=== PATIENT | male | born 1945 | race Caucasian/White ===

== ENCOUNTER 2018-06-24 09:17 | Inpatient (IN) | payer OTHER ==
[~2018-06-24] VITALS: Ht 162.6 cm; Wt 41.6 kg
[2018-06-24] MEDS ORDERED: HYDROmorphone 2 MG/ML, 1ML IM ONE (10:00)
[2018-06-24] MEDS ORDERED: HYDROmorphone 2 MG/ML, 1ML ONE ×2 (10:01→12:44)
[2018-06-24] MEDS ORDERED: MORPHINE SULFATE (10:15)
[2018-06-24] MEDS ORDERED: SODIUM CHLORIDE FLUSH 10ML SYR IVF ONE (11:00)
[2018-06-24 11:24] LABS: BASOPHILS # (AUTO) 0.02 x10^3/uL (0-0.1); BASOPHILS % (AUTO) 0 % (0-1); EOSINOPHILS # (AUTO) 0.03 x10^3/uL (0-0.4); EOSINOPHILS % (AUTO) 0 % (1-7); LYMPHOCYTES # (AUTO) 0.77 x10^3/uL (1-3.4); LYMPHOCYTES % (AUTO) 8 % (22-44); MD NO; MEAN CORPUSCULAR HEMOGLOBIN 35.8 pg (27.5-34.5); MEAN CORPUSCULAR HGB CONC 34.3 g/dL (33.2-36.2); MEAN CORPUSCULAR VOLUME 104.5 fL (81-97); MEAN PLATELET VOLUME 7.2 fL (7.4-10.4); MONOCYTES # (AUTO) 0.53 x10^3/uL (0.2-0.8); MONOCYTES % (AUTO) 6 % (2-9); NEUTROPHILS # (AUTO) 7.92 x10^3/uL (1.8-6.8); NEUTROPHILS % (AUTO) 86 % (42-75); PLATELET COUNT 355 x10^3/uL (130-400); RED BLOOD COUNT 3.96 x10^6/uL (4.38-5.82); RED CELL DISTRIBUTION WIDTH 14.4 % (9.4-14.8)
[2018-06-24 11:36] LABS: ALBUMIN 3.5 g/dL (3.4-5.0); ANION GAP 8 mmol/L (5-15); CALCIUM 8.8 mg/dL (8.5-10.1); CHLORIDE 95 mmol/L (98-107); CREATININE 0.77 mg/dL (0.7-1.3)
[2018-06-24] MEDS ORDERED: HYDROmorphone 2 MG/ML, 1ML IVPush PRN (12:00)
[2018-06-24 14:00] VITALS: BP 92/65
[2018-06-24] MEDS ORDERED: ONDANSETRON 2MG/ML, 2ML IVPush PRN (14:00)
[2018-06-24] MEDS ORDERED: hydrALAzine 20 MG/ML, 1ML IVPush PRN (14:00)
[2018-06-24] MEDS ORDERED: ACETAMINOPHEN 500 MG TABLET PO PRN (14:00)
[2018-06-24] MEDS ORDERED: KETOROLAC 30 MG/1 ML IVPush ONE (14:00)
[2018-06-24] MEDS: morphine SULFATE 10 MG/ML, 1ML IVPush PRN ×4 (14:18→23:54)
[2018-06-24] MEDS: SODIUM CHLORIDE 0.9% 1,000 ML IV SCH ×2 (14:41→23:56)
[2018-06-24] MEDS: NICOTINE 7 MG/24 HR PATCH.TD24 TD SCH (16:59)
[2018-06-24 18:52] VITALS: BP 107/66
[2018-06-24] MEDS: HEPARIN 5,000 UNITS/ML, 1ML SQ SCH (21:00)
[2018-06-24 21:23] LABS: MICROSCOPIC AUTO
[2018-06-24 21:24] LABS: CULTURE INDICATED? NO
[2018-06-24] MEDS: KETOROLAC 30 MG/1 ML IV PRN (22:52)
[2018-06-25 01:23] VITALS: BP 130/76
[2018-06-25] MEDS: morphine SULFATE 10 MG/ML, 1ML IVPush PRN (04:07)
[2018-06-25] MEDS: HEPARIN 5,000 UNITS/ML, 1ML SQ SCH ×3 (05:00→19:54)
[2018-06-25 06:48] VITALS: BP 156/91
[2018-06-25] MEDS: KETOROLAC 30 MG/1 ML IV PRN ×2 (07:05→21:09)
[2018-06-25] MEDS: POLYETHYLENE GLYCOL 17 GM PACKET PO SCH (08:18)
[2018-06-25] MEDS: SENNA/DOCUSATE TABLET PO SCH (08:18)
[2018-06-25] MEDS: HYDROmorphone 2 MG/ML, 1ML IVPush PRN ×7 (08:23→22:23)
[2018-06-25] MEDS ORDERED: HYDROmorphone 1 MG/ML, 1ML IV PRN (08:30)
[2018-06-25 13:12] VITALS: BP 172/90
[2018-06-25 13:30] VITALS: BP 162/90
[2018-06-25] MEDS: SODIUM CHLORIDE 0.9% 1,000 ML IV SCH (14:31)
[2018-06-25] MEDS: NICOTINE 7 MG/24 HR PATCH.TD24 TD SCH (17:11)
[2018-06-25 18:36] VITALS: BP 176/88
[2018-06-25 22:07] VITALS: BP 176/89
[2018-06-26] MEDS: HEPARIN 5,000 UNITS/ML, 1ML SQ SCH (00:05)
[2018-06-26] MEDS: HYDROmorphone 2 MG/ML, 1ML IVPush PRN ×5 (01:10→11:01)
[2018-06-26 01:11] VITALS: BP 131/66
[2018-06-26] MEDS: KETOROLAC 30 MG/1 ML IV PRN ×2 (03:11→11:02)
[2018-06-26] MEDS: SODIUM CHLORIDE 0.9% 1,000 ML IV SCH (03:18)
[2018-06-26 06:40] VITALS: BP 147/78
[2018-06-26] MEDS: SENNA/DOCUSATE TABLET PO SCH (08:34)
[2018-06-26] MEDS: POLYETHYLENE GLYCOL 17 GM PACKET PO SCH (08:34)
== END 2018-06-26 12:25 | disposition home or self-care (01) | DRG 543 ==
LOC: ED 10:47 → EDIP 10:48 → ED 11:12 → 4NOR 13:55 → 3NW 18:04 → DCLOUNGE 06-26 12:17
PROVIDERS: ADMIT Internal Medicine; ATTEND Hospitalist
DX: M48.55XA Collapsed vertebra, not elsewhere classified, thoracolumbar region, initial encounter for fracture (principal); E87.1 Hypo-osmolality and hyponatremia; G89.29 Other chronic pain; F17.210 Nicotine dependence, cigarettes, uncomplicated; W06.XXXA Fall from bed, initial encounter; R10.11 Right upper quadrant pain; Y93.89 Activity, other specified; Y92.092 Bedroom in other non-institutional residence as the place of occurrence of the external cause; Y99.8 Other external cause status; Z88.0 Allergy status to penicillin; M48.54XA Collapsed vertebra, not elsewhere classified, thoracic region, initial encounter for fracture
CPT/HCPCS: 36415; 72072; 72110; 72157; 72158; 74220; 74230; 80048; 81001; 82040; 83605; 85025; 96372; 99285; G0378; J1170; J1885; J0360; J2270; J7030

== ENCOUNTER 2018-11-19 13:29 | Inpatient (IN) | payer OTHER ==
[~2018-11-19] VITALS: Ht 165.1 cm; Wt 44.2 kg
[~2018-11-19 13:29] MED LIST: MORPHINE SULFATE PO
--- NOTE | 2018-11-19 14:10 | NUR ---
LUNCH RN: PT CARLY RODRIGUEZ FROM HOME FOR INCREASED DIFFICULTY BREATHING WITH ACTIVITY, PAIN IN JAW AND THROAT NOT CONTROLLED BY HOME MEDS AND RECENT FALLS. BRUISING NOTED TO LEFT SHOULDER AND FACE. GIVEN BREATHING TREATMENT BY MICHAEL, STATES EASIER TO BREATH NOW. CONNECTED TO ALL MONITORING, VSS. CALL LIGHT [employer] REACH. ORDERS RECEIVED. LAB AT BEDSIDE FOR COLLECTION, BLOOD CULTURES DRAWN. AWAITING TESTING AND RESULTS AT THIS TIME.
[2018-11-19 14:26] LABS: BASOPHILS # (AUTO) 0.04 x10^3/uL (0-0.1); BASOPHILS % (AUTO) 1 % (0-1); EOSINOPHILS # (AUTO) 0.01 x10^3/uL (0-0.4); EOSINOPHILS % (AUTO) 0 % (1-7); LYMPHOCYTES # (AUTO) 0.66 x10^3/uL (1-3.4); LYMPHOCYTES % (AUTO) 12 % (22-44); MD NO; MEAN CORPUSCULAR HEMOGLOBIN 34.9 pg (27.5-34.5); MEAN CORPUSCULAR HGB CONC 33.1 g/dL (33.2-36.2); MEAN CORPUSCULAR VOLUME 105.4 fL (81-97); MEAN PLATELET VOLUME 6.7 fL (7.4-10.4); MONOCYTES # (AUTO) 0.36 x10^3/uL (0.2-0.8); MONOCYTES % (AUTO) 6 % (2-9); NEUTROPHILS # (AUTO) 4.63 x10^3/uL (1.8-6.8); NEUTROPHILS % (AUTO) 81 % (42-75); PLATELET COUNT 428 x10^3/uL (130-400); RED CELL DISTRIBUTION WIDTH 14.3 % (9.4-14.8)
[2018-11-19 14:36] LABS: ALANINE AMINOTRANSFERASE 12 U/L (12-78); ALBUMIN 3.1 g/dL (3.4-5.0); ANION GAP 7 mmol/L (5-15); CALCIUM 9.3 mg/dL (8.5-10.1); CHLORIDE 98 mmol/L (98-107); CREATININE 0.66 mg/dL (0.7-1.3)
[2018-11-19 14:40] LABS: ALKALINE PHOSPHATASE 101 U/L (45-117); BILIRUBIN,TOTAL 0.5 mg/dL (0.2-1.0); TOTAL PROTEIN 7.4 g/dL (6.4-8.2); TROPONIN I < 0.015 ng/mL (0.000-0.045)
--- NOTE | 2018-11-19 15:00 | NUR ---
PATIENT CONTINUES TO REPORT IMPROVEMENT IN BREATHING. UNLABORED/CLEAR LUNGS, POX WNL. ON INFORMATICS EDUCATOR, VSS. CALL LIGHT [employer] REACH. ALL ORDER ACKNOWLEDGED AND COMPLETED WILL CONTINUE TO MONITOR.
[2018-11-19] MEDS ORDERED: ENALAPRILAT 1.25 MG/ML, 2ML IV ONE (15:30)
[2018-11-19] MEDS ORDERED: ENALAPRILAT 1.25 MG/ML, 2ML ONE (15:48)
--- NOTE | 2018-11-19 16:30 | NUR ---
UPON REASSESSMENT PATIENT REPORTS BREATHING REMAIN IMPROVED, HOWEVER, HE REPORT HIS MOUTH PAIN IS WORSENING. B/P NOTED TO BE ELEVATED. PROVIDER ORDER ANTIHYPERTENSIVE. TO ADMINISTER WHEN RETURNED FROM CT SCAN.
[2018-11-19] MEDS ORDERED: OMNIPAQUE 350 MG/ML, 100ML BOTTLE ONE (16:53)
[2018-11-19] MEDS ORDERED: ONDANSETRON 2MG/ML, 2ML ONE (17:19)
[2018-11-19] MEDS ORDERED: MORPHINE SULFATE 4 MG/ML, 1ML ONE ×2 (17:20→18:46)
[2018-11-19] MEDS: MORPHINE SULFATE 4 MG/ML, 1ML IVPush PRN ×2 (17:23→18:50)
[2018-11-19] MEDS ORDERED: CEFTRIAXONE PMX 1GM/50ML 50 ML IV ONE (17:30)
[2018-11-19] MEDS ORDERED: ONDANSETRON 2MG/ML, 2ML IVPush ONE (17:30)
--- NOTE | 2018-11-19 17:37 | NUR ---
PATIENT MEDICATED FOR PAIN/NAUSEA/HYPERTENSION. ORDERS RECEIVED FOR ANTI-INFECTIVES WELL. TO ADMIN SHORTLY. REMAINS ON CAR DRIVER. CALL [facility] [employer] WITHIN REACH AND SIDE RAILS UP. PATIENT HELPED RE-ADJUST IN BED TO MAINTAIN COMFORT.
[2018-11-19] MEDS ORDERED: METRONIDAZOLE PMX 500MG/100ML 100 ML ONE (17:45)
[2018-11-19] MEDS ORDERED: CEFAZOLIN PMX 1GM/50ML 50 ML ONE (17:45)
[2018-11-19 17:54] LABS: MICROSCOPIC NOT IND
[2018-11-19 18:01] LABS: CULTURE INDICATED? NO
--- NOTE | 2018-11-19 18:11 | NUR ---
HOSPITALIST AT BEDSIDE
[2018-11-19] MEDS ORDERED: METRONIDAZOLE PMX 500MG/100ML 100 ML IV ONE (18:30)
--- NOTE | 2018-11-19 18:56 | NUR ---
REPORTS HE HAD MANDIBULAR SURGERY 4 YEARS AGO FOR BACTERIAL INFECTION-NO PROCEDURES SINCE THAT TIME
[2018-11-19] MEDS ORDERED: BISACODYL 10 MG SUPP PR PRN (19:00)
[2018-11-19] MEDS ORDERED: ONDANSETRON 2MG/ML, 2ML IVPush PRN (19:00)
[2018-11-19 19:28] LABS: FOLATE LEVEL > 20.0 ng/mL (3.1-17.5)
[2018-11-19] MEDS: NICOTINE 7 MG/24 HR PATCH.TD24 TD SCH (19:59)
[2018-11-19] MEDS ORDERED: NS + 20MEQ KCL 1,000 ML IV ONE (20:00)
[2018-11-19] MEDS: NS + 20MEQ KCL 1,000 ML IV SCH (20:07)
[2018-11-19 20:20] VITALS: BP 144/90
[2018-11-19] MEDS: morphine SULFATE ORAL.CONC 20 MG/ML PO SCH (21:01)
[2018-11-20] MEDS: morphine SULFATE ORAL.CONC 20 MG/ML PO SCH ×6 (01:14→21:12)
[2018-11-20] MEDS: METRONIDAZOLE PMX 500MG/100ML 100 ML IV SCH ×3 (01:55→18:17)
[2018-11-20 05:18] LABS: BASOPHILS # (AUTO) 0.04 x10^3/uL (0-0.1); BASOPHILS % (AUTO) 1 % (0-1); EOSINOPHILS # (AUTO) 0.06 x10^3/uL (0-0.4); EOSINOPHILS % (AUTO) 1 % (1-7); LYMPHOCYTES # (AUTO) 0.62 x10^3/uL (1-3.4); LYMPHOCYTES % (AUTO) 9 % (22-44); MD NO; MEAN CORPUSCULAR HEMOGLOBIN 35.3 pg (27.5-34.5); MEAN CORPUSCULAR HGB CONC 33.5 g/dL (33.2-36.2); MEAN CORPUSCULAR VOLUME 105.3 fL (81-97); MEAN PLATELET VOLUME 6.7 fL (7.4-10.4); MONOCYTES # (AUTO) 0.54 x10^3/uL (0.2-0.8); MONOCYTES % (AUTO) 8 % (2-9); NEUTROPHILS # (AUTO) 6.01 x10^3/uL (1.8-6.8); NEUTROPHILS % (AUTO) 83 % (42-75); PLATELET COUNT 360 x10^3/uL (130-400); RED BLOOD COUNT 3.67 x10^6/uL (4.38-5.82); RED CELL DISTRIBUTION WIDTH 14.6 % (9.4-14.8)
[2018-11-20 05:24] LABS: ALANINE AMINOTRANSFERASE 11 U/L (12-78); ALBUMIN 2.8 g/dL (3.4-5.0); ANION GAP 4 mmol/L (5-15); CALCIUM 8.4 mg/dL (8.5-10.1); CHLORIDE 104 mmol/L (98-107); CREATININE 0.59 mg/dL (0.7-1.3)
[2018-11-20 05:27] LABS: ALKALINE PHOSPHATASE 91 U/L (45-117); BILIRUBIN,TOTAL 0.6 mg/dL (0.2-1.0); TOTAL PROTEIN 6.6 g/dL (6.4-8.2)
[2018-11-20] MEDS: NICOTINE 7 MG/24 HR PATCH.TD24 TD SCH (05:36)
[2018-11-20] MEDS: NS + 20MEQ KCL 1,000 ML IV SCH ×2 (05:56→14:38)
[2018-11-20 06:55] VITALS: BP 182/106
[2018-11-20 07:35] VITALS: BP 174/102
[2018-11-20] MEDS ORDERED: hydrALAzine 20 MG/ML, 1ML IV ONE (08:00)
[2018-11-20 08:45] VITALS: BP 137/87
[2018-11-20] MEDS: MORPHINE SULFATE 4 MG/ML, 1ML IVPush PRN ×5 (10:21→21:12)
[2018-11-20 13:28] VITALS: BP 165/94
[2018-11-20] MEDS ORDERED: hydrALAzine 20 MG/ML, 1ML IV PRN (15:00)
[2018-11-20] MEDS: ENOXAPARIN 40 MG/0.4 ML SQ SCH (17:38)
[2018-11-20] MEDS: CEFTRIAXONE PMX 1GM/50ML 50 ML IV SCH (17:38)
[2018-11-20] MEDS: LORazepam 2 MG/ML, 1ML IVPush PRN (17:38)
[2018-11-20 19:47] VITALS: BP 179/99
[2018-11-21] MEDS: MORPHINE SULFATE 4 MG/ML, 1ML IVPush PRN ×4 (01:04→14:03)
[2018-11-21] MEDS: LORazepam 2 MG/ML, 1ML IVPush PRN ×3 (01:05→17:12)
[2018-11-21] MEDS: NS + 20MEQ KCL 1,000 ML IV SCH ×2 (01:13→13:20)
[2018-11-21] MEDS: morphine SULFATE ORAL.CONC 20 MG/ML PO SCH ×2 (01:13→05:45)
[2018-11-21 02:39] VITALS: BP 163/105
[2018-11-21] MEDS: METRONIDAZOLE PMX 500MG/100ML 100 ML IV SCH ×3 (02:51→18:22)
[2018-11-21 05:02] LABS: ANION GAP 8 mmol/L (5-15); CALCIUM 8.9 mg/dL (8.5-10.1); CHLORIDE 106 mmol/L (98-107)
[2018-11-21 05:03] LABS: CREATININE 0.53 mg/dL (0.7-1.3)
[2018-11-21 08:14] VITALS: BP 167/87
[2018-11-21] MEDS: NICOTINE 7 MG/24 HR PATCH.TD24 TD SCH (08:19)
[2018-11-21] MEDS ORDERED: LABETALOL 5 MG/ML SYRINGE IVPush PRN (12:30)
[2018-11-21 13:20] VITALS: BP 169/96
[2018-11-21] MEDS: ENOXAPARIN 40 MG/0.4 ML SQ SCH (16:19)
[2018-11-21 18:57] VITALS: BP 196/116
[2018-11-21] MEDS: CEFTRIAXONE PMX 1GM/50ML 50 ML IV SCH (19:32)
[2018-11-21] MEDS: LABETALOL 20 MG/4 ML IVPush PRN (19:32)
[2018-11-22] MEDS: NS + 20MEQ KCL 1,000 ML IV SCH ×2 (00:47→21:34)
[2018-11-22] MEDS: LABETALOL 20 MG/4 ML IVPush PRN ×2 (00:54→07:32)
[2018-11-22 01:03] VITALS: BP 191/122
[2018-11-22] MEDS: METRONIDAZOLE PMX 500MG/100ML 100 ML IV SCH ×3 (01:42→17:38)
[2018-11-22 05:17] LABS: ANION GAP 7 mmol/L (5-15); CALCIUM 8.4 mg/dL (8.5-10.1); CHLORIDE 108 mmol/L (98-107)
[2018-11-22 05:18] LABS: CREATININE 0.47 mg/dL (0.7-1.3)
[2018-11-22 07:25] VITALS: BP 173/105
[2018-11-22 07:50] VITALS: BP 189/102
[2018-11-22] MEDS: METOPROLOL 1 MG/ML, 5ML IVPush SCH ×3 (09:00→21:00)
[2018-11-22 10:25] VITALS: BP 162/99
[2018-11-22] MEDS: POTASSIUM PHOSPHATE 44 MEQ in SODIUM CHLORIDE 0.9% 500 ML IV ONE ×2 (11:15→20:25)
[2018-11-22] MEDS ORDERED: cloniDINE 0.1MG PATCH TD SCH (12:30)
[2018-11-22] MEDS: ENOXAPARIN 40 MG/0.4 ML SQ SCH (17:31)
[2018-11-22] MEDS: LORazepam 2 MG/ML, 1ML IVPush PRN (17:38)
[2018-11-22 19:10] VITALS: BP 114/70
[2018-11-22] MEDS: CEFTRIAXONE PMX 1GM/50ML 50 ML IV SCH (20:20)
[2018-11-22] MEDS: NICOTINE 7 MG/24 HR PATCH.TD24 TD SCH (21:34)
[2018-11-23] MEDS: METOPROLOL 1 MG/ML, 5ML IVPush SCH ×2 (01:12→07:21)
[2018-11-23 01:39] VITALS: BP 170/96
[2018-11-23] MEDS: METRONIDAZOLE PMX 500MG/100ML 100 ML IV SCH ×2 (01:47→10:02)
[2018-11-23] MEDS: LORazepam 2 MG/ML, 1ML IVPush PRN ×2 (01:52→09:58)
[2018-11-23 04:43] LABS: ANION GAP 5 mmol/L (5-15); CALCIUM 8.4 mg/dL (8.5-10.1); CHLORIDE 109 mmol/L (98-107); CREATININE 0.55 mg/dL (0.7-1.3)
[2018-11-23 04:45] LABS: BASOPHILS # (AUTO) 0.03 x10^3/uL (0-0.1); BASOPHILS % (AUTO) 0 % (0-1); EOSINOPHILS # (AUTO) 0.04 x10^3/uL (0-0.4); EOSINOPHILS % (AUTO) 1 % (1-7); LYMPHOCYTES # (AUTO) 0.57 x10^3/uL (1-3.4); LYMPHOCYTES % (AUTO) 6 % (22-44); MD NO; MEAN CORPUSCULAR HEMOGLOBIN 35.7 pg (27.5-34.5); MEAN CORPUSCULAR HGB CONC 33.6 g/dL (33.2-36.2); MEAN CORPUSCULAR VOLUME 106.2 fL (81-97); MEAN PLATELET VOLUME 7.4 fL (7.4-10.4); MONOCYTES % (AUTO) 7 % (2-9); NEUTROPHILS # (AUTO) 7.92 x10^3/uL (1.8-6.8); NEUTROPHILS % (AUTO) 86 % (42-75); PLATELET COUNT 308 x10^3/uL (130-400); RED BLOOD COUNT 3.39 x10^6/uL (4.38-5.82)
[2018-11-23 06:53] VITALS: BP 178/92
[2018-11-23] MEDS: NS + 20MEQ KCL 1,000 ML IV SCH (12:20)
[2018-11-23 12:33] VITALS: BP 165/89
== END 2018-11-23 13:35 | disposition left against medical advice (07) | DRG 177 ==
LOC: ED 17:35 → EDIP 17:36 → ED 18:17 → 3NW 20:14
PROVIDERS: ADMIT Internal Medicine; ATTEND Internal Medicine
DX: J69.0 Pneumonitis due to inhalation of food and vomit (principal); E43 Unspecified severe protein-calorie malnutrition; M48.55XA Collapsed vertebra, not elsewhere classified, thoracolumbar region, initial encounter for fracture; Z68.1 Body mass index [BMI] 19.9 or less, adult; E83.39 Other disorders of phosphorus metabolism; I10 Essential (primary) hypertension; G89.29 Other chronic pain; F17.210 Nicotine dependence, cigarettes, uncomplicated; E87.6 Hypokalemia; D53.9 Nutritional anemia, unspecified; Z66 Do not resuscitate; Z85.819 Personal history of malignant neoplasm of unspecified site of lip, oral cavity, and pharynx; R13.10 Dysphagia, unspecified; Z88.0 Allergy status to penicillin; D75.89 Other specified diseases of blood and blood-forming organs; Z53.21 Procedure and treatment not carried out due to patient leaving prior to being seen by health care provider
CPT/HCPCS: 36415; 71045; 71275; 74230; 80048; 80053; 81003; 82607; 82746; 83605; 83735; 83880; 84100; 84145; 84484; 85025; 87040; 87070; 87077; 87186; 87205; 93005; 96365; 96375; 99285; G0378; J0696; J1650; J2270; J2405; J3480; Q9967; J0360; J2060; J3490; J7040